=== PATIENT | female | born 1960 | race Caucasian/White ===

== ENCOUNTER → 2023-12-25 | Outpatient (CLI) | payer BC, SELFPAY | END | disposition home or self-care (01) | PROVIDERS: Referring Provider Specialist; Visit Provider Specialist | DX: R19.7 Diarrhea, unspecified (principal) | CPT/HCPCS: 87493 ==

== ENCOUNTER 2024-04-04 12:50 | Day surgery (SDC) | payer BC, SELFPAY ==
[2024-04-03 14:19] VITALS: BMI 18.8
[2024-04-04] VITALS (9 sets, daily range): BP systolic 118–184; BP diastolic 67–98; PULSE 58–116; RESP 16–21; TEMP 36.7–37.3; O2SAT 96–100; BMI 20.5
[2024-04-04] MEDS: SODIUM CHLORIDE 0.9% 250 ML 250 ML 125 ML IV (14:40)
[2024-04-04] MEDS: ONDANSETRON INJ 2 MG/ML INJ 2 ML 4 MG IV (14:44)
[2024-04-04] MEDS: DiphenhydrAMINE INJ 50 MG/ML VIAL 25 MG IV (14:44)
[2024-04-04] MEDS: fentaNYL CIT INJ 50 mCg/ML AMP 2ML (ASD USE ONLY) 25 MCG IV (14:47)
[2024-04-04] MEDS: MEPERIDINE INJ 25 MG/ML VIAL (ASD USE ONLY) IV (14:49)
[2024-04-04] MEDS: MIDAZOLAM INJ 1 MG/ML VIAL 2 ML (ASD USE ONLY) 2 MG IV (14:49)
--- NOTE | 2024-04-04 16:03 | SUR.PHASEII ---
1505: Pt received for recovery. Report from Yanira URBAN. Pt sleepy. Is arousable. Resp even, unlabored. VS stable. No c/o pain, discomfort. 1530: Pt more awake, alert. Sitting up tolerating po fluids with no difficulty swallowing and no n/v. 1550: Pt fully awake, oriented x3. Pt assisted to restroom. Ambulation steady. Pt and stated understanding of discharge instructions. Pt discharged from [facility] in stable condition.
== END 2024-04-04 15:50 | disposition home or self-care (01) ==
PROVIDERS: PCP Internal Medicine; Referring Provider Specialist; Visit Provider Specialist
PROC: (CPT 43239; principal; 2024-04-04 14:30)
DX: K21.00 Gastro-esophageal reflux disease with esophagitis, without bleeding (principal); K22.2 Esophageal obstruction; K29.70 Gastritis, unspecified, without bleeding; K22.10 Ulcer of esophagus without bleeding; K29.50 Unspecified chronic gastritis without bleeding; K31.89 Other diseases of stomach and duodenum
CPT/HCPCS: 43248; 43239; A4649; C1769; J1200; J2175; J2250; J2405; J3010; J7050

== ENCOUNTER → 2024-06-26 | Outpatient (CLI) | payer BC, SELFPAY ==
--- NOTE | 2024-06-26 08:30 | XR_ITS ---
Examination: Screening digital mammography, bilateral Computer aided detection 3-D breast Tomosynthesis, bilateral Date and time of exam: June 26, 2024 0829 hours Compared to mammograms dating to May 04, 2021 Indication: Screening Technique: Nonmagnified MLO, CC views of the breasts to been obtained, reconstructed from 3-D Tomosynthesis images. R2 computer aided detection program utilized for evaluation of suspicious masses and/or abnormal calcifications. 3-D Tomosynthesis images obtained. Findings: The breasts are extremely dense, which limits the sensitivity of mammography Breast biopsy marker upper outer right breast No suspicious masses Benign calcifications Impression: BI-RADS category II: Benign Findings. Recommend 1 year follow-up mammogram.
== END | disposition home or self-care (01) ==
LOC: CDIM 08:19
PROVIDERS: Referring Provider Physician Assistant Medical; Visit Provider Physician Assistant Medical
DX: Z12.31 Encounter for screening mammogram for malignant neoplasm of breast (principal); R92.323 Mammographic fibroglandular density, bilateral breasts; R92.1 Mammographic calcification found on diagnostic imaging of breast
CPT/HCPCS: 77063; 77067

== ENCOUNTER → 2024-07-11 | Outpatient (CLI) | payer BC, SELFPAY ==
--- NOTE | 2024-07-11 13:20 | XR_ITS ---
Examination: Bone densitometry Date and time of exam:July 11, 2024 1324 hours INDICATIONS: Menopause age 50, prednisone administration for ulcerative colitis, personal history osteopenia Technique: Lumbar spine and hip total bone mineralization values of an calculated. Peak reference and age match control results have been displayed. Findings: Lumbar spine total bone mineralization is0.843 gm/cm2. This is 1.9 standard deviations below peak reference. This is 0.2 standard deviations below age-matched controls. Hip total bone mineralization is 0.762 gm/cm2 This is 1.5 standard deviations below peak reference. This is 4 standard deviations below age-matched controls Impression: There is osteopenia based on lumbar spine measurements. There is osteopenia based on hip measurements Lumbar mineralization is decreased 4.4% compared with October 20, 2021 Hip mineralization is decreased 4.3% compared with October 20, 2021
== END | disposition home or self-care (01) ==
LOC: CDIM 12:58
PROVIDERS: Referring Provider Internal Medicine; Visit Provider Internal Medicine
DX: M85.89 Other specified disorders of bone density and structure, multiple sites (principal)
CPT/HCPCS: 77080